=== PATIENT | female | born 1975 | race Caucasian/White ===

== ENCOUNTER 2024-01-26 11:39 | Outpatient (CLI) | payer BC, SELFPAY ==
[2024-01-26 12:03] VITALS: BP 148/83; PULSE 68; RESP 18; O2SAT 100
[2024-01-26] MEDS: ferumoxytoL 510 MG in 0.9 % SODIUM CHLORIDE 50 ML 268 MG IV (12:03)
[2024-01-26] MEDS: SODIUM CHLORIDE 0.9% 50ML BAG 50 ML IV (12:03)
[2024-01-26 12:26] VITALS: BP 124/74; PULSE 60; RESP 18; O2SAT 100
== END 2024-01-26 12:26 | disposition home or self-care (01) ==
LOC: INF 11:41
PROVIDERS: Visit Provider Internal Medicine Medical Oncology
DX: D50.9 Iron deficiency anemia, unspecified (principal)
CPT/HCPCS: 96374; Q0138

== ENCOUNTER 2024-02-02 11:29 | Outpatient (CLI) | payer BC, SELFPAY ==
[2024-02-02] MEDS: ferumoxytoL 510 MG in 0.9 % SODIUM CHLORIDE 50 ML 268 MG IV (11:57)
[2024-02-02] MEDS: SODIUM CHLORIDE 0.9% 50ML BAG 50 ML IV (11:57)
[2024-02-02 12:00] VITALS: BP 121/59; PULSE 57; RESP 18; O2SAT 100
[2024-02-02 12:30] VITALS: BP 115/59; PULSE 55; RESP 18; O2SAT 100
== END 2024-02-02 12:30 | disposition home or self-care (01) ==
LOC: INF 11:31
PROVIDERS: Visit Provider Internal Medicine Medical Oncology
DX: D50.9 Iron deficiency anemia, unspecified (principal)
CPT/HCPCS: 96374; Q0138

== ENCOUNTER 2024-03-30 12:24 | Outpatient (CLI) | payer BC, SELFPAY ==
[2024-03-30 12:36] LABS: Basophils # 0.1 K/mm3 (0-0.2); Basophils % 1.1 % (0.1-2.0); Eosinophils # 0.1 K/mm3 (0.0-0.4); Eosinophils % 2.4 % (0.1-12.0); Hematocrit 42.3 % (37.0-47.0); Hemoglobin 13.8 g/dL (12.2-16.2); Lymphocytes # 1.7 K/mm3 (0.7-4.5); Lymphocytes % 30.9 % (10-50); Mean Corpuscular HGB Conc 32.6 g/dL (31.8-35.4); Mean Corpuscular Hemoglobin 30.9 pg (27.0-31.2); Mean Corpuscular Volume 94.8 fl (81-99); Mean Platelet Volume 7.3 fl (7.4-10.4); Monocytes # 0.3 K/mm3 (0.1-1.0); Neutrophils # 3.2 K/mm3 (1.8-7.8); Neutrophils % 59.6 % (37.0-80.0); Platelet Count 250 K/mm3 (142-424); Red Blood Count 4.46 M/mm3 (4.20-5.40); Red Cell Distribution Width 20.2 % (11.5-17.5); White Blood Count 5.3 K/mm3 (4.8-10.8)
[2024-03-30 13:00] LABS: Total Iron Binding Capacity 263 ug/dL (265-497)
[2024-03-30 13:28] LABS: Ferritin 59.2 ng/ml (6.24-137)
[2024-03-30 13:33] LABS: Iron 139 ug/dL (37-170)
== END 2024-03-30 23:59 | disposition home or self-care (01) ==
LOC: LAB 12:26
PROVIDERS: Visit Provider Internal Medicine Medical Oncology
DX: D50.0 Iron deficiency anemia secondary to blood loss (chronic) (principal)
CPT/HCPCS: 36415; 82728; 83540; 83550; 85025